=== PATIENT | female | born 1955 | race Caucasian/White ===

== ENCOUNTER 2021-02-25 08:05 | Outpatient (CLI) | payer MEDICARE | END 2021-02-25 23:59 | disposition home or self-care (01) | LOC: CFH 08:05 → EDSEX 08:05 → CFH 23:59 | PROVIDERS: ATTEND Family Medicine | DX: M81.0 Age-related osteoporosis without current pathological fracture (principal); N64.9 Disorder of breast, unspecified; N60.02 Solitary cyst of left breast; N95.9 Unspecified menopausal and perimenopausal disorder | CPT/HCPCS: 76642; 77062; 77080; 77066; G0279 ==